=== PATIENT | female | born 1960 | race Caucasian/White ===

== ENCOUNTER 2022-03-24 06:51 | Day surgery (SDC) | payer MEDICAID ==
[2022-03-17 11:32] LABS: BASOPHILS # (AUTO) 0.1 X10'3 (0-0.2); BASOPHILS % (AUTO) 1.3 % (0-1); EOSINOPHILS # (AUTO) 0.1 X10'3 (0-0.9); EOSINOPHILS % (AUTO) 2.1 % (0-6); LYMPHOCYTES % (AUTO) 30.8 % (21-51); MEAN CORPUSCULAR HEMOGLOBIN 31.8 PG (27.0-31.0); MEAN CORPUSCULAR HGB CONC 33.2 g/dL (33.0-36.5); MEAN CORPUSCULAR VOLUME 95.8 FL (78-98); MEAN PLATELET VOLUME 9.1 FL (7.4-10.4); MONOCYTES # (AUTO) 0.5 X10'3 (0-0.9); MONOCYTES % (AUTO) 8.1 % (2-12); NEUTROPHILS # (AUTO) 3.7 X10'3 (1.8-7.7); NEUTROPHILS % (AUTO) 57.7 % (42-75); PRE OP HEMATOCRIT 41.9 % (35.0-45.0); PRE OP HEMOGLOBIN 13.9 g/dL (12.0-16.0); PRE OP PLATELET COUNT 209 X10'3 (140-440); RED BLOOD COUNT 4.38 X10'6 (4.20-5.60); RED CELL DISTRIBUTION WIDTH 14.6 % (11.5-14.5)
[2022-03-17 11:40] LABS: ALBUMIN 3.8 G/DL (3.4-5.0); ALBUMIN/GLOBULIN RATIO 1.1 (1.1-1.5); ALKALINE PHOSPHATASE 66 IU/L (46-116); BLOOD UREA NITROGEN 13 MG/DL (7-18); BUN/CREATININE RATIO 12.4 (6.6-38.0); CALCIUM 8.6 MG/DL (8.5-10.1); CHLORIDE 105 MMOL/L (99-107); CREATININE 1.05 MG/DL (0.40-0.90); PRE OP ALT 25 U/L (30-65); PRE OP ANION GAP 6 (8-16); PRE OP AST 27 U/L (10-37); PRE OP BILIRUB, TOTAL 0.5 MG/DL (0.0-1.0); PRE OP GLUCOSE 96 MG/DL (70-104); PRE OP POTASSIUM 4.1 MMOL/L (3.4-5.1); PRE OP SODIUM 139 MMOL/L (135-145); TOTAL CARBON DIOXIDE 27.7 MMOL/L (24-32); TOTAL PROTEIN 7.3 G/DL (6.4-8.2); eGFR 53 ML/MIN
[~2022-03-24] VITALS: Ht 158.8 cm; Wt 64.4 kg
[~2022-03-24 06:51] MED LIST: ASPI-529 PO; ATOR20TA PO; CHOL400T57 PO; CYAN500T71 PO; DOCUMENT DATE & TIME OF BETA-BLOCKER PO ONE; ISOS60TA71 PO; METO-395 PO; ONDA4TAB12 PO; calcium chews PO; famotidine 20mg tablet PO ONE; ringers solution, lacted 1,000 ML IV SCH
[2022-03-24] MEDS ORDERED: ceFAZolin inj. 2,000 MG in dextrose 5%-water 100 ML IV ONE (07:36)
[2022-03-24 08:13] VITALS: BP 123/82
[2022-03-24 08:17] VITALS: BP 123/82
[2022-03-24] MEDS ORDERED: fentaNYL/PF 50MCG/1 ML 2ML syringe ONE (10:23)
[2022-03-24] MEDS ORDERED: midazolam 1 mg/ML 2ml injection ONE ×2 (10:24→11:04)
[2022-03-24] MEDS ORDERED: BUPIVAcaine/PF 2.5mg/ml (0.25%) 10ml vial ONE (10:41)
[2022-03-24] MEDS ORDERED: LIDOcaine 0.5% (5mg/ml) 50ml vial ONE (10:47)
[2022-03-24] MEDS ORDERED: propofol inj 20 ML IV ONE (11:25)
[2022-03-24 11:28] VITALS: BP 110/64
--- NOTE | 2022-03-24 11:28 | NUR ---
Received from OR via [facility] , accompanied by Anesthesiologist SHOBHA and report given by Anesthesiolgist. PATIENT WITH SPLINT TO LEFT UE. FINGERS ALL PWD. + CAP REFILL AND SENSATION . ICE DONNED UPON ARRIVAL . PATIENT DENNIES PAIN AT THIS TIME. VSS. 20GPIV IN RIGHT UE RUNNING LR AT 100. Addendum: 03/24/22 at 1143 by Corey Nance RN, RN Amended: Links added.
[2022-03-24 11:40] VITALS: BP 98/69
[2022-03-24 11:50] VITALS: BP 129/74
[2022-03-24 12:00] VITALS: BP 120/78
--- NOTE | 2022-03-24 12:08 | NUR ---
ALL DISCHARGE CRITERIA HAS BEEN MET. VSS, PAIN AT A TOLERABLE LEVEL, VOIDING AND ABLE TO SAFELY AMBULATE AND TRANSFER SELF. IV TAKEN OUT WITHOUT ANY COMPLICATIONS. ALL DISCHARGE INSTRUCTIONS COVERED WITH PATIENT AND ALL QUESTIONS ANSWERED. PATIENT TAKEN OUT VIA WHEELCHAIR TO PERSONAL VEHICLE WHERE FAMILY/FRIEND DROVE PATIENT HOME. Addendum: 03/24/22 at 1216 by Corey Nance RN, RN Amended: Links added.
--- NOTE | 2022-03-24 12:40 | NUR ---
CALLED PATIENT AND INSTRUCTED TO USE CPAP AT HOME FOR NEXT 24 HOURS. PATIENT STATES THAT SHE HAS HAD A BROKEN NOSE AND WAS NOT ABLE TO WEAR A CPAP MASK. INSTRUCTED PATIENT TO MAKE SURE SOMEONE IS WITH HER AND SHE STATED SHE DOES. PATIENT AWARE OF THE RISK AND IS AWARE. Addendum: 03/24/22 at 1242 by Corey Nance RN, RN Amended: Links added.
== END 2022-03-24 12:08 | disposition home or self-care (01) ==
LOC: PAS 06:51
PROVIDERS: ATTEND Orthopaedic Surgery Hand Surgery
DX: G56.02 Carpal tunnel syndrome, left upper limb (principal); G56.82 Other specified mononeuropathies of left upper limb; F41.9 Anxiety disorder, unspecified; I10 Essential (primary) hypertension; D64.9 Anemia, unspecified; Z79.899 Other long term (current) drug therapy; Z90.710 Acquired absence of both cervix and uterus; Z98.890 Other specified postprocedural states; Z98.84 Bariatric surgery status; Z88.8 Allergy status to other drugs, medicaments and biological substances; Z88.6 Allergy status to analgesic agent
CPT/HCPCS: 36415; 64702; 64721; 80053; 82948; 85025; 87811; 93005; J2250; J2704; J3010; J3490; J7030; J7120; Z7506; Z7512; A4215